=== PATIENT | female | born 1955 | race Caucasian/White ===

== ENCOUNTER → 2018-12-07 16:00 | Outpatient (CLI) | payer MEDICARE, OTHER, SELFPAY ==
--- NOTE | 2018-12-07 16:02 | DI.MG.S_ITS ---
BILATERAL DIGITAL SCREENING MAMMOGRAM 3D/2D WITH CAD: 12/07/2018 CLINICAL: Routine screening. Comparison is made to exams dated: 06/05/2016 mammogram - [facility] and 01/12/2013 mammogram - [facility]. There are scattered fibroglandular elements in both breasts. Current study was also evaluated with a Computer Aided Detection (CAD) system. No significant masses, calcifications, or other findings are seen in either breast. There has been no significant interval change. IMPRESSION: NEGATIVE There is no mammographic evidence of malignancy. A 1 year screening mammogram is recommended. This exam was interpreted at Station ID: [id number]. NOTE: For mammograms, a report in lay terms will be sent to the patient. Approximately 15% of breast malignancies will not be visualized mammographically. In the management of a palpable breast mass, a negative mammogram must not discourage biopsy of a clinically suspicious lesion. Electronically Signed By: Mary Beth doan/ignacio:12/07/2018 16:51:20 letter sent: Normal Exam ACR BI-RADS Category 1: Negative 3341F
== END ==
PROVIDERS: PCP Specialist; Visit Provider Specialist
DX: Z12.31 Encounter for screening mammogram for malignant neoplasm of breast (principal)
CPT/HCPCS: 77063; 77067

== ENCOUNTER → 2019-11-01 09:45 | Outpatient (CLI) | payer MEDICARE, OTHER, SELFPAY ==
[2019-11-02 06:37] LABS: COVID19 Sendout Not Detected (Not Detect)
== END ==
PROVIDERS: PCP Specialist; Visit Provider Physician Assistant
DX: Z01.812 Encounter for preprocedural laboratory examination (principal)
CPT/HCPCS: 87635

== ENCOUNTER 2019-11-04 06:48 | Day surgery (SDC) | payer MEDICARE, OTHER, SELFPAY ==
[2019-11-01 14:14] VITALS: BMI 25.5
[2019-11-04] VITALS (9 sets, daily range): BP systolic 117–140; BP diastolic 57–69; PULSE 57–68; RESP 12–16; TEMP 36.3–36.5; O2SAT 97–100; BMI 25.0
--- NOTE | 2019-11-04 07:27 | SUR.OPER ---
Lithotomy on padded OR bed, head on pillow, arms secured on padded arm boards at <90 degrees abduction. Legs secured in padded yellow fins stirrups.
--- NOTE | 2019-11-04 07:29 | PM.PREOP ---
Pre-operative Note COVID-19 COVID-19 status: Negative Result date/Date tested (Pos, Neg/Pending): 11/01/19 Interval Note History & Physical reviewed/Exam performed by Physician: Yes Changes to H&P: No
[2019-11-04] MEDS: LACTATED RINGERS 1,000 ML 42 ML IV (07:38)
[2019-11-04] MEDS: CEFAZOLIN 2 GM/100 ML FROZ.PIGGY IV (07:47)
--- NOTE | 2019-11-04 08:09 | SUR.OPER ---
Lithotomy on padded OR bed, head on pillow, arms secured on padded arm boards at <90 degrees abduction. Legs secured in padded yellow fins stirrups.
[2019-11-04] MEDS: BUPIVACAINE 0.5% W/ EPI (PF) 30 ML VIAL INJ (08:15)
--- NOTE | 2019-11-04 09:04 | PM.OP.1 ---
Operative Date/Time/Diagnoses Date of procedure: 11/04/19 Time of procedure: 09:04 Pre-op diagnosis: Stress urinary incontinence and cystocele Post-op diagnosis: same Procedure & Clinicians Procedure: TVT exact retropubic suburethral sling and anterior colporrhaphy Same procedure as scheduled: Yes Indications: Stress urinary incontinence and cystocele Surgeon: Rachel Metz Driller Brake Lining: [place] Anesthesia Type: General Operative Notes Closure Type: primary Specimen(s): none sent Prosthetic devices, grafts, tissues, transplants, or devices: TVT exact suburethral sling Applied: catheter Estimated Blood Loss (mL): 30 Blood products transfused: none Procedure in detail: Patient was brought to the operating room where she underwent general anesthesia. [facility]. A 20 point check system was reviewed. 2 g of Ancef were in prior to beginning case. Warming was in place. Pulsatile stockings were in place and functional. She was prepped and draped in the usual sterile fashion. 15 mL of half percent Marcaine with epinephrine were diluted with 70 mL of saline 10 cc was injected around the mid urethra. The rest of the dilute solution was placed retropubically. An incision was made over the mid urethra with a scalpel. The incision was extended down over the cystocele. The incision was extended laterally. The suprapubic exit sites were marked with a marking pen. The needles attached to the sling were placed from the bottom up and left in place. The catheter was removed and cystoscopy was performed. A 70?? scope examined the bladder and the right side the trocar was through the bladder. The trocar was removed and replaced. A 70 degree scope followed by a 0?? scope were used to look at the bladder and the urethra was no damage apparent with placement of the needles. The graft was brought up loosely under the mid urethra. With sharp pressure against the bladder there was some leakage of urine. The plastic sheath was removed. The graft was cut under the skin of the suprapubic sites. Plication sutures of 0 Vicryl suture were placed over the cystocele. The vaginal incision was closed with 2-0 vicryl suture. Patient went to recovery room in good condition. Counts of instruments and sponges were correct. Complications: other (Needle trocar entered the bladder on the right side was replaced in their appropriate position) Post-operative Condition: stable Disposition: same day surgery Plan for aftercare: Patient will have the Rocha catheter remained in place for 1 week and remove in the office for postvoid residual check at that time
--- NOTE | 2019-11-04 11:35 | SUR.PHASEII ---
Pt d/c with londono catheter. Instructions provided re: leg bag to pt and . instructed on care: emptying, cleaning and caring for londono. Pt aware to have appt in [address] Metz and to contact her with any additional questions or concerns.
== END 2019-11-04 11:03 | disposition home or self-care (01) ==
PROVIDERS: PCP Student in an Organized Health Care Education/Training Program; Referring Provider Student in an Organized Health Care Education/Training Program; Visit Provider Specialist
PROC: 0TSD0ZZ Reposition Urethra, Open Approach (ICD-10-PCS; CPT 57288; principal; 2019-11-04 07:45)
PROC: (CPT 57288; 2019-11-04 07:45)
DX: N39.3 Stress incontinence (female) (male) (principal); N81.11 Cystocele, midline
CPT/HCPCS: 57288; 57240; C1771; J0690; J1100; J2250; J2405; J2704; J3010

== ENCOUNTER → 2020-05-18 12:25 | Outpatient (CLI) | payer MEDICARE, SELFPAY ==
--- NOTE | 2020-05-18 | DI.MG.S_ITS ---
BILATERAL DIGITAL SCREENING MAMMOGRAM 3D/2D WITH CAD: 05/18/2020 CLINICAL: Routine screening. Comparison is made to exams dated: 12/07/2018 mammogram and 06/05/2016 mammogram - [facility]. The tissue of both breasts is heterogeneously dense. This may lower the sensitivity of mammography. Current study was also evaluated with a Computer Aided Detection (CAD) system. No significant masses, calcifications, or other findings are seen in either breast. There has been no significant interval change. IMPRESSION: NEGATIVE There is no mammographic evidence of malignancy. A 1 year screening mammogram is recommended. This exam was interpreted at Station ID: [id number]. NOTE: For mammograms, a report in lay terms will be sent to the patient. Approximately 15% of breast malignancies will not be visualized mammographically. In the management of a palpable breast mass, a negative mammogram must not discourage biopsy of a clinically suspicious lesion. Electronically Signed By: Erick franco/ignacio:05/18/2020 14:38:07 copy to: MARCOS HUMPHREY letter sent: Normal Exam ACR BI-RADS Category 1: Negative 3341F
== END ==
PROVIDERS: PCP Student in an Organized Health Care Education/Training Program; Referring Provider Student in an Organized Health Care Education/Training Program; Visit Provider Student in an Organized Health Care Education/Training Program
DX: Z12.31 Encounter for screening mammogram for malignant neoplasm of breast (principal); Z78.0 Asymptomatic menopausal state; Z87.891 Personal history of nicotine dependence; Z82.62 Family history of osteoporosis
CPT/HCPCS: 77063; 77067; 77080

== ENCOUNTER → 2022-02-24 14:24 | Outpatient (CLI) | payer MEDICARE, SELFPAY ==
[2022-02-24 14:38] LABS: Hematocrit 40.3 % (36-46); Hemoglobin 13.8 g/dL (12.0-16.0); Mean Corpuscular HGB Conc 34.1 % (30-36); Mean Corpuscular Hemoglobin 31.7 PG (26-34); Mean Corpuscular Volume 92.8 fL (80-100); Platelet Count 255 X10^3/uL (150-400); Red Blood Cell Count 4.34 X10^6/uL (4.0-5.2); Red Cell Distribution Width 13.5 % (11.6-14.8); White Blood Cell Count 6.4 X10^3/uL (4.5-11.0)
[2022-02-24 16:35] LABS: Alanine Aminotransferase 26 IU/L (<35); Albumin 4.5 g/dL (3.5-5.0); Albumin Globulin Ratio 1.2 (1.0-2.8); Alkaline Phosphatase 79 U/L (38-126); Aspartate Aminotransferase 32 IU/L (14-36); BUN Creatinine Ratio 17.6 (6-22); Bilirubin Total 0.5 mg/dL (0.2-1.3); Blood Urea Nitrogen 15 mg/dL (7-17); Calcium 9.3 mg/dL (8.4-10.2); Carbon Dioxide 30 mmol/L (22-32); Chloride 97 mmol/L (98-107); Cholesterol 293 mg/dL (140-199); Estimated Glomerular Filt Rate > 60 mL/min (>60); Globulin 3.7 g/dL (1.7-4.1); Glucose 92 mg/dL (80-110); HDL Cholesterol 78 mg/dL (40-60); HEMOLYSIS < 15 (0-50); LDL Cholesterol Calculated 188 mg/dL (<100); Potassium 4.6 mmol/L (3.4-5.1); Sodium 135 mmol/L (137-145); Total Protein 8.2 g/dL (6.3-8.2); Triglycerides 135 mg/dL (35-150)
[2022-02-24 17:32] LABS: TSH w/ Reflex to FT4 1.83 uIU/mL (0.47-4.68)
== END ==
PROVIDERS: PCP Internal Medicine; Referring Provider Internal Medicine; Visit Provider Internal Medicine
DX: E78.2 Mixed hyperlipidemia (principal); N95.1 Menopausal and female climacteric states; Z91.89 Other specified personal risk factors, not elsewhere classified
CPT/HCPCS: 36415; 80053; 80061; 84443; 85027

== ENCOUNTER → 2022-04-30 09:19 | Outpatient (CLI) | payer MEDICARE, SELFPAY ==
--- NOTE | 2022-04-30 09:20 | DI.MRI.S_ITS ---
PROCEDURE: MR HEAD/BRAIN WO/W CON INDICATIONS: meningioma followup (see 2006 report at ) TECHNIQUE: Noncontrast axial T1 spin echo, axial T2 fast spin echo, sagittal and axial FLAIR, coronal T2 fast spin echo, axial gradient echo, axial diffusion and ADC through the brain. After the administration of contrast, axial and coronal and sagittal 3D VIBE or T1 spin echo with fat saturation through the brain. COMPARISON: [facility], MR, BRAIN W&WO CONTRAST, 01/18/2014, 18:19. FINDINGS: Enhancing extra-axial mass situated immediately superior to the posterior midline tentorium has increased in size when compared with the previous exam. This currently measures approximately 3.2 x 4.1 x 4.0 cm AP LR CC dimension, significantly increased from approximately 2.3 x 2.5 x 2.7 cm previously. Interval increased mass effect on the adjacent dural venous sinuses including the torcula, bilateral medial transverse sinuses, inferior sagittal sinus, and superior sagittal sinus. Mass effect on the parenchyma is also increased, most notably in the right greater than left occipital lobes. Basilar cisterns and ventricular system are patent. No brain parenchymal signal abnormality adjacent to the lesion. No abnormal brain parenchymal enhancement. No restricted diffusion to indicate recent ischemia. No unexpected intracranial susceptibility. There is susceptibility within the mass likely representing flow voids and some mineralization. IMPRESSION: Significantly increased size of enhancing extra-axial mass consistent with meningioma. Worsened mass effect on the adjacent dural venous sinuses. Dictated by: Wilman Pablo M.D. on 04/30/2022 at 12:47 Approved by: Wilman Pablo M.D. on 04/30/2022 at 12:52
== END ==
PROVIDERS: PCP Internal Medicine; Referring Provider Internal Medicine; Visit Provider Internal Medicine
DX: D32.0 Benign neoplasm of cerebral meninges (principal)
CPT/HCPCS: 70553; A9579

== ENCOUNTER → 2022-07-17 09:15 | Outpatient (CLI) | payer MEDICARE, SELFPAY ==
--- NOTE | 2022-07-17 | DI.MG.S_ITS ---
BILATERAL DIGITAL SCREENING MAMMOGRAM 3D/2D WITH CAD: 07/17/2022 CLINICAL: Routine screening. Comparison is made to exams dated: 05/18/2020 mammogram, 12/07/2018 mammogram, and 06/05/2016 mammogram - [facility]. Both breasts are heterogeneously dense, which may obscure small masses (category c / 51-75% glandular tissue). Current study was also evaluated with a Computer Aided Detection (CAD) system. No significant masses, calcifications, or other findings are seen in either breast. There has been no significant interval change. IMPRESSION: NEGATIVE There is no mammographic evidence of malignancy. A 1 year screening mammogram is recommended. Based on the Tyrer Cuzick model (a risk assessment model) the patient's lifetime risk is 6.2% and her 10 year risk is 3.7%. According to the ACR, ACS, and NCCN guidelines, an annual breast MRI exam along with mammogram is recommended if the patient's lifetime risk is 20% or greater. This exam was interpreted at Station ID: [id number]. NOTE: For mammograms, a report in lay terms will be sent to the patient. Approximately 15% of breast malignancies will not be visualized mammographically. In the management of a palpable breast mass, a negative mammogram must not discourage biopsy of a clinically suspicious lesion. Electronically Signed By: Joseph monreal/ignacio:07/17/2022 10:27:14 copy to: MARCOS HUMPHREY letter sent: Normal Exam ACR BI-RADS Category 1: Negative 3341F
== END ==
PROVIDERS: PCP Internal Medicine; Referring Provider Internal Medicine; Visit Provider Internal Medicine
DX: Z12.31 Encounter for screening mammogram for malignant neoplasm of breast (principal)
CPT/HCPCS: 77063; 77067

== ENCOUNTER 2022-09-23 12:47 | Day surgery (SDC) | payer MEDICARE, SELFPAY ==
--- NOTE | 2022-09-23 | PATH_ITS ---
[facility] Accession Number: [id number] No. of containers..02 Tissue . 01 Material submitted: . PART A: colon - TRANSVERSE COLON POLYP PART B: sigmoid colon - SIGMOID POLYP . 01 Diagnosis: A. Transverse Colon, Polypectomy: Tubular adenoma. . B. Sigmoid Colon, Polypectomy: Tubular adenoma. MRV 09/29/2022 1434 Local . 01 Electronically signed: . Anita Price MD, Pathologist NPI- [id number] . 01 Gross description: . Part A: TRANSVERSE COLON POLYP: Received in formalin is 1 fragment(s) of fisher, soft tissue measuring 0.3 x 0.3 x 0.2 cm submitted entirely in 1 cassette(s) Part B: SIGMOID POLYP: Received in formalin is 1 fragment(s) of fisher, soft tissue measuring 0.2 x 0.2 x 0.2 cm submitted entirely in 1 cassette(s) /HAO 09/24/2022 2310 Local . 01 Pathologist provided ICD-10: D12.3, D12.5 . 01 CPT . 054669, 777144 Specimen Comment: A courtesy copy of this report has been sent to [phone] Performed at: 01 [facility] [address] [place] [address], [place], [place] [id number] MD Uriel Wright MD Phone: [phone]
[2022-09-23 13:05] VITALS: BMI 24.1
[2022-09-23] MEDS: LACTATED RINGERS 1,000 ML 200 ML IV (13:17)
[2022-09-23 13:20] VITALS: BP 130/63; PULSE 59; RESP 16; TEMP 36.5; O2SAT 95
--- NOTE | 2022-09-23 14:08 | PM.HP.1 ---
History of Present Illness History of Present Illness Date Patient Seen: 09/23/22 Time Patient Seen: 14:08 Chief complaint: SDC Narrative: 67-year-old woman personal history of colonic polyps here for screening colonoscopy. Last colonoscopy 5 years ago and significant for polyps. No abdominal pain blood per rectum unintentional weight loss. 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 History of colonic polyps Medicare annual wellness visit, initial Meningioma Menopausal syndrome Migraines Mixed hyperlipidemia Overweight Raynaud's phenomenon Stress incontinence in female Vision disturbance Surgical History History of back surgery (2000) History of bilateral tubal ligation (1985) History of excision of pilonidal cyst (1974) Status post colonoscopy Status post hysterectomy Status post surgery Status post tubal ligation Family History Brother Age: 66 Stroke Brother Age: 66 Heart disease Grandfather Heart disease Social History details: ([place]), two retired, retired commercial loan coordinator household members: spouse Smoking Status: Former smoker alcohol intake: current Meds Home Medications and Allergies Home Medications Medication Instructions Recorded Confirmed Type calcipotriene-betamethasone 0.005 1 applic topical DAILY 02/03/22 09/23/22 History %-0.064 % topical ointment clobetasol 0.05 % topical foam 1 applic topical DAILY PRN Dry 02/03/22 09/23/22 History Skin #0 grams estradiol 0.5 mg/0.5 gram (0.1 %) 1 packet transdermal DAILY 02/03/22 09/23/22 History transdermal gel packet (Divigel) propranolol 60 mg capsule,24 60 mg PO DAILY #90 caps 06/11/22 09/23/22 Rx hr,extended release estradiol 0.01% (0.1 mg/gram) See Rx Instructions .Route 08/25/22 09/23/22 Rx vaginal cream .COMPLEX #42.5 grams Allergies Allergy/AdvReac Type Severity Reaction Status Date / Time No Known Drug Allergies Allergy Verified 09/23/22 12:58 Exam Vital Signs (past 8 hours): - 09/23/22 13:20 Temperature 97.7 F Pulse Rate 59 L Respiratory Rate 16 Blood Pressure 130/63 Pulse Oximetry 95 Oxygen Delivery Method Room Air Oxygen Delivery Method Room Air Narrative Exam Narrative: General adult woman alert oriented no acute distress Chest nonlabored respiration Extremities warm well perfused Assessment & Plan Assessment and plan (1) History of colonic polyps: Status: Acute Assessment & Plan narrative: The patient requires colorectal screening and colonoscopy is recommended. Technical details were discussed. Risks, benefits, alternatives explained. Risks including but not limited to myocardial infarction, aspiration, bleeding, pain, missed lesion, incomplete examination, need for further radiographic studies, colonic perforation, and need for major abdominal surgery were discussed. All questions were answered to their satisfaction, and they are in agreement with this plan.
[2022-09-23 14:46] VITALS: BP 111/66; PULSE 77; RESP 13; TEMP 36.3; O2SAT 100
--- NOTE | 2022-09-23 14:47 | PM.OP.COLON ---
Operative Date/Time/Diagnoses Date of procedure: 09/23/22 Time of procedure: 14:47 Pre-op diagnosis: Personal history of colonic polyps Post-op diagnosis: other (Colonic polyps x2) Procedure & Clinicians Study performed: Colonoscopy and polypectomy Same procedure as scheduled: Yes Indications: 67-year-old woman personal history of colonic polyps here for colorectal screening. Surgeon: Shukri Magdaleno Procedure Notes Procedure in detail: The history and physical was performed/updated and the patient is ASA class is 2. The procedure was discussed in detail with the patient. Potential risks complications including infection, bleeding, missed diagnosis, perforation, need for surgery, and were explained. Their questions were answered and informed consent was obtained. Patient was brought to the procedure room and placed standard monitoring equipment. The patient's vital signs were monitored continuously throughout the entire procedure. Prior to starting time-out was performed. The patient was placed in the left lateral recumbent position. Procedural sedation was administered by anesthesia. Examination began with a thorough inspection of the perianal area there was no evidence of fissures, fistulae, external hemorrhoids or cutaneous malignancy. The colonoscopy scope was then placed into the anal canal and was advanced to the cecum, which was identified by the ileocecal valve, the appendiceal orifice and the confluence of the taenia. The scope was then slowly withdrawn examining colon thoroughly in all directions, irrigating it of any residual stool. Within the transverse colon there is a 3 mm polyp removed with biopsy forceps. Within the sigmoid colon there is a 5 mm polyp removed with biopsy forceps completely. The remainder of the colon was largely unremarkable. The patient tolerated the procedure well. They will be discharged once criteria are met. The prep was of good/excellent quality. The withdrawl time was 7 minutes. Specimen(s): other (Sigmoid and transverse colonic polyps) Complications: none Impression: Colonic polyps x2 Post-procedure Plan for aftercare: Follow-up is dependent on pathology findings Disposition: same day surgery
[2022-09-23 14:51] VITALS: BP 113/67; PULSE 66; RESP 12; O2SAT 100
[2022-09-23 14:56] VITALS: BP 122/53; PULSE 67; RESP 16; TEMP 36.4; O2SAT 100
[2022-09-23 15:04] VITALS: BP 115/50; PULSE 80; RESP 16; TEMP 36.3; O2SAT 96
== END 2022-09-23 15:18 | disposition home or self-care (01) ==
PROVIDERS: PCP Internal Medicine; Referring Provider Surgery; Visit Provider Surgery
PROC: 0DJD8ZZ Inspection of Lower Intestinal Tract, Via Natural or Artificial Opening Endoscopic (ICD-10-PCS; CPT 45378; principal; 2022-09-23 13:45)
DX: Z12.11 Encounter for screening for malignant neoplasm of colon (principal); Z86.010 Personal history of colon polyps; D12.3 Benign neoplasm of transverse colon; D12.5 Benign neoplasm of sigmoid colon
CPT/HCPCS: 45380; J2704

== ENCOUNTER → 2023-03-07 12:14 | Outpatient (CLI) | payer MEDICARE, SELFPAY ==
--- NOTE | 2023-03-07 | DI.MRI.S_ITS ---
PROCEDURE: MR HEAD/BRAIN WO/W CON INDICATIONS: 67-year-old female status post large occipital meningioma resection, unknown timing. TECHNIQUE: Noncontrast axial T1 spin echo, axial T2 fast spin echo, sagittal and axial FLAIR, coronal T2 fast spin echo, axial gradient echo, axial diffusion and ADC through the brain. After the administration of contrast, axial and coronal and sagittal 3D VIBE or T1 spin echo with fat saturation through the brain. COMPARISON: [facility], , MR HEAD/BRAIN WO/W CON, 04/30/2022, 9:39. FINDINGS: CSF Spaces: Basal cisterns are patent. No extra-axial fluid collections. Ventricles are normal in size and shape. Brain: Previously noted large right occipital meningioma has been resected via bilateral suboccipital craniotomies. Thin occipital extra-axial fluid measuring up to 1.5 mm in thickness crosses the midline and displaces the torcula anteriorly. There is an appropriate flow void and enhancement in the dural sinuses. Encephalomalacia and gliosis noted in the right occipital pole associated with cerebral edema, and there is linear gyral enhancement in the right occipital lingual gyrus measuring 2.1 by 0.5 cm without mass effect Otherwise, no evidence of acute infarct or midline shift. No hydrocephalus. Skull and face: Calvarial marrow is normal in signal. Orbits appear normal. Sinuses: Sinuses and mastoids appear clear. IMPRESSION: Recent right occipital meningioma resection associated with thin extra-axial postoperative fluid, probably epidural. Appropriate dural venous flow voids and enhancement noted. 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 Appropriate evolution will be further evaluated on surveillance studies Approved by: Wilfred Knapp M.D. on 03/09/2023 at 10:14
== END ==
PROVIDERS: PCP Internal Medicine; Referring Provider Physician Assistant Surgical; Visit Provider Physician Assistant Surgical
DX: D32.9 Benign neoplasm of meninges, unspecified (principal); G93.89 Other specified disorders of brain; G93.6 Cerebral edema
CPT/HCPCS: 70553; A9579

== ENCOUNTER → 2023-09-17 09:08 | Outpatient (CLI) | payer MEDICARE, SELFPAY ==
--- NOTE | 2023-09-17 09:11 | DI.MRI.S_ITS ---
PROCEDURE: MR HEAD/BRAIN WO/W CON INDICATIONS: 6 MONTH FOLLOW UP MENINGIOMA TECHNIQUE: Noncontrast axial T1 spin echo, axial T2 fast spin echo, sagittal and axial FLAIR, coronal T2 fast spin echo, axial gradient echo, axial diffusion and ADC through the brain. After the administration of contrast, axial and coronal and sagittal T1 spin echo with fat saturation through the brain. COMPARISON: [facility], MR, MR HEAD/BRAIN WO/W CON, 03/07/2023, 12:34. FINDINGS: Image quality: Excellent. CSF spaces: Basal cisterns are patent. No extra-axial fluid collections. Ex vacuo dilatation of the occipital horn of the right lateral ventricle is increased compared to prior. Brain: Encephalomalacia and gliosis within the right occipital lobe. No findings concerning for residual recurrent meningioma. No midline shift. No intracranial bleeds or masses. No abnormal intracranial enhancement. There is cerebral volume loss for age. There is periventricular white matter chronic small vessel ischemic change. The brainstem appears normal. Diffusion-weighted images demonstrate no acute infarct. No chronic ischemic insults. Normal intravascular flow voids are present. Skull and face: Posterior craniotomy. Calvarial marrow is normal in signal. Orbits appear normal. Sinuses: Sinuses and mastoids appear clear. IMPRESSION: Postsurgical changes from resection of right occipital meningioma with encephalomalacia and gliosis in the right occipital lobe and ex vacuo dilatation of the occipital horn of the right lateral ventricle. No findings concerning for residual or recurrent meningioma. Dictated by: Jin Armstrong M.D. on 09/17/2023 at 11:09 Approved by: Jin Armstrong M.D. on 09/17/2023 at 11:14
== END ==
LOC: MRI 09:09
PROVIDERS: Family Provider Internal Medicine; PCP Internal Medicine; Referring Provider Physician Assistant; Visit Provider Physician Assistant
DX: D32.9 Benign neoplasm of meninges, unspecified (principal); G93.89 Other specified disorders of brain; Z98.890 Other specified postprocedural states
CPT/HCPCS: 70553; A9579

== ENCOUNTER → 2024-03-01 10:40 | Outpatient (CLI) | payer MEDICARE, SELFPAY ==
[2024-03-01 12:10] LABS: Hematocrit 40.8 % (36-46); Hemoglobin 13.7 g/dL (12.0-16.0); Mean Corpuscular HGB Conc 33.5 % (30-36); Mean Corpuscular Hemoglobin 31.2 PG (26-34); Mean Corpuscular Volume 93.2 fL (80-100); Platelet Count 308 X10^3/uL (150-400); Red Blood Cell Count 4.38 X10^6/uL (4.0-5.2); Red Cell Distribution Width 13.3 % (11.6-14.8)
[2024-03-01 12:52] LABS: Alanine Aminotransferase 23 IU/L (<35); Albumin 4.4 g/dL (3.5-5.0); Albumin Globulin Ratio 1.6 (1.0-2.8); Alkaline Phosphatase 90 U/L (38-126); Aspartate Aminotransferase 29 IU/L (14-36); BUN Creatinine Ratio 22.4 (6-22); Bilirubin Total 0.4 mg/dL (0.2-1.3); Blood Urea Nitrogen 19 mg/dL (7-17); Calcium 9.9 mg/dL (8.4-10.2); Carbon Dioxide 30 mmol/L (22-32); Chloride 102 mmol/L (98-107); Cholesterol 256 mg/dL (140-199); Estimated Glomerular Filt Rate > 60 mL/min (>60); Globulin 2.8 g/dL (1.7-4.1); Glucose 93 mg/dL (80-110); HDL Cholesterol 90 mg/dL (40-60); HEMOLYSIS < 15 (0-50); LDL Cholesterol Calculated 139 mg/dL (<100); Potassium 5.3 mmol/L (3.4-5.1); Sodium 136 mmol/L (137-145); Total Protein 7.2 g/dL (6.3-8.2); Triglycerides 135 mg/dL (35-150)
[2024-03-01 13:22] LABS: TSH w/ Reflex to FT4 1.58 uIU/mL (0.47-4.68)
== END ==
PROVIDERS: Family Provider Internal Medicine; PCP Internal Medicine; Referring Provider Internal Medicine; Visit Provider Internal Medicine
DX: D32.9 Benign neoplasm of meninges, unspecified (principal); E78.2 Mixed hyperlipidemia; Z91.89 Other specified personal risk factors, not elsewhere classified
CPT/HCPCS: 36415; 80053; 80061; 84443; 85027

== ENCOUNTER → 2024-07-20 12:55 | Outpatient (CLI) | payer MEDICARE, SELFPAY ==
--- NOTE | 2024-07-20 12:56 | DI.MG.S_ITS ---
MM screening mammo BI: 07/20/2024. BI-RADS: 1 CLINICAL: 69-year old female for bilateral screening mammogram. Tyrer-Cuzick lifetime risk of 4.7%. No personal or first-degree family history of breast cancer. The patient had a prior left breast biopsy. PRIOR EXAMS 07/17/2022, 05/18/2020, 12/07/2018, 06/05/2016. MAMMOGRAPHY TECHNIQUE: 2D and 3D (tomosynthesis) digital mammographic views obtained, with additional images as needed for full coverage. Current study was also evaluated with a Computer Aided Detection (CAD) system. DENSITY B. There are scattered areas of fibroglandular density. MAMMOGRAPHY FINDINGS Bilateral: No suspicious mass, asymmetry, microcalcification, or other abnormality seen. No significant change from comparison. IMPRESSION: * No evidence of malignancy. RECOMMENDATIONS Bilateral * Annual screening mammography. OVERALL ASSESSMENT CATEGORY BI-RADS-1: Negative. The [employer] recommends annual screening mammography beginning at age 40 for women with average risk of breast cancer. ELECTRONICALLY SIGNED: Rupa Springer M.D. on 07/20/2024 at 05:23:11 PM PT Interpreting Station ID: [id number]
== END ==
PROVIDERS: PCP Internal Medicine; Referring Provider Internal Medicine; Visit Provider Internal Medicine
DX: Z12.31 Encounter for screening mammogram for malignant neoplasm of breast (principal)
CPT/HCPCS: 77063; 77067

== ENCOUNTER → 2025-03-07 10:43 | Outpatient (CLI) | payer MEDICARE, SELFPAY ==
[2025-03-07 11:57] LABS: Hematocrit 40.5 % (36-46); Hemoglobin 13.6 g/dL (12.0-16.0); Mean Corpuscular HGB Conc 33.6 % (30-36); Mean Corpuscular Hemoglobin 31.0 PG (26-34); Mean Corpuscular Volume 92.3 fL (80-100); Platelet Count 268 X10^3/uL (150-400)
[2025-03-07 12:23] LABS: Blood Urea Nitrogen 13 mg/dL (7-17); Calcium 9.3 mg/dL (8.4-10.2); Carbon Dioxide 27 mmol/L (22-32); Chloride 98 mmol/L (98-107); Cholesterol 181 mg/dL (140-199); Estimated Glomerular Filt Rate > 60 mL/min (>60); Glucose 90 mg/dL (70-99); HDL Cholesterol 85 mg/dL (40-60); HEMOLYSIS < 15 (0-50); Potassium 4.7 mmol/L (3.4-5.1); Sodium 135 mmol/L (137-145); Triglycerides 129 mg/dL (35-150)
[2025-03-07 12:51] LABS: TSH w/ Reflex to FT4 2.21 uIU/mL (0.47-4.68)
== END ==
PROVIDERS: PCP Internal Medicine; Referring Provider Internal Medicine; Visit Provider Internal Medicine
DX: R53.83 Other fatigue (principal); E78.2 Mixed hyperlipidemia
CPT/HCPCS: 80048; 80061; 84443; 84450; 85027